=== PATIENT | male | born 1935 | race Caucasian/White ===

== ENCOUNTER 2025-05-14 04:01 | Inpatient (IN) | payer OTHER ==
[2025-05-14] MEDS: NALOXONE HCL (KLOXXADO) 8 MG SPRAY NS ONE ×2 (04:15→04:58)
[2025-05-14] MEDS ORDERED: NALOXONE (NARCAN) HCL 4 MG/0.1 ML SPRAY NS ONE ×2 (04:15→04:39)
[2025-05-14] MEDS ORDERED: DEXTROSE 50%-WATER 25 GM/50 ML DISP.SYRIN ONE ×2 (04:40→04:41)
[2025-05-14] MEDS ORDERED: DEXTROSE 50%-WATER - 25 GM/50 ML VIAL ONE (04:41)
[2025-05-14] MEDS ORDERED: NALOXONE HCL 0.4 MG/ML VIAL ONE ×2 (04:44→05:14)
[2025-05-14] MEDS: NALOXONE HCL 0.4 MG/ML VIAL IVPUSH ONE ×2 (04:53→05:18)
[2025-05-14] MEDS: DEXTROSE 50%-WATER - 25 GM/50 ML VIAL IVPUSH ONE (05:03)
[2025-05-14 06:28] LABS: MCHC 31.0 g/dl (32.3-36.5); MEAN CELL VOLUME 97.6 fl (79.0-92.2); MEAN PLT VOLUME 9.3 fl (9.4-12.4); RDW 15.0 % (12.6-16.6)
[2025-05-14 06:34] LABS: INR 1.78 (0.83-1.09); PROTHROMBIN TIME (PATIENT) 19.6 SEC (9.7-13.0)
[2025-05-14 06:37] LABS: ACTIVATED PTT 33.0 SECONDS (25.2-36.5)
[2025-05-14 06:54] LABS: GLUCOSE,RANDOM 196 mg/dL (74-106); TOT PROT 2.9 g/dl (6.4-8.2)
[2025-05-14 06:55] LABS: CO2 16 mmol/L (21-32)
[2025-05-14 06:57] LABS: ALK PHOS 29 U/L (40-150)
[2025-05-14 07:00] LABS: CREATININE 0.46 mg/dL (0.55-1.3); SGOT/AST 12 U/L (5-34)
[2025-05-14 07:05] LABS: SGPT/ALT < 6 U/L (0-55)
[2025-05-14 07:26] LABS: BG HCT 43.0 % (35.4-49); VENOUS BASE EXCESS -1.7 mmol/L (-2-2); VENOUS O2 SATURATION 97.5 % (70-80); VENOUS PCO2 49.3 mmHg (38-52); VENOUS PH 7.321 (7.310-7.410)
[2025-05-14] MEDS: KCL 10 MEQ IVPB 10 MEQ/100 ML INFUS.BAG IVPB SCH (07:38)
[2025-05-14] MEDS: SODIUM CHLORIDE 0.9% 500 ML INFUS.BAG IV ONE (07:38)
[2025-05-14] MEDS ORDERED: CALCIUM GLUC IN NACL, ISO-OSM 1 GM/50 ML BAG IVPB ONE (08:33)
[2025-05-14] MEDS ORDERED: KCL 10 MEQ IVPB 10 MEQ/100 ML INFUS.BAG IVPB ONE ×2 (08:34→09:46)
[2025-05-14] MEDS: CALCIUM GLUC IN NACL, ISO-OSM 1 GM/50 ML BAG IVPB ONE (09:01)
[2025-05-14] MEDS ORDERED: MAGNESIUM SULFATE IN WATER 2 GM/50 ML IVPB IVPB ONE (09:54)
[2025-05-14] MEDS: MAGNESIUM SULFATE IN WATER 2 GM/50 ML IVPB IVPB ONE (09:58)
[2025-05-14] MEDS ORDERED: ENOXAPARIN NA (PORCINE) 40 MG/0.4 ML DISP.SYRIN SQ SCH (10:00)
[2025-05-14 10:11] LABS: COCAINE, UR NEGATIVE (NEGATIVE)
[2025-05-14] MEDS ORDERED: CEFTRIAXONE 1 GM/50 ML BAG ONE (10:11)
[2025-05-14 10:12] LABS: METHADONE, UR NEGATIVE (NEGATIVE); PHENCYCLIDINE,URINE NEGATIVE (NEGATIVE); URINE BARBITURATES NEGATIVE (NEGATIVE); URINE BENZODIAZEPINES NEGATIVE (NEGATIVE)
[2025-05-14 10:16] LABS: OPIATES, URI NEGATIVE (NEGATIVE); URINE AMPHETAMINES NEGATIVE (NEGATIVE)
[2025-05-14 10:20] LABS: EPI CELLS 12 /uL (0-25.1); HYALINE CASTS 0 /uL (0-3.1); URINE APPEARANCE CLEAR; URINE BACTERIA 4 /uL (0-1359); URINE BILIRUBIN NEGATIVE (NEGATIVE); URINE COLOR DK YELLOW; URINE GLUCOSE (UA) 3+ (NEGATIVE); URINE KETONE 1+ (NEGATIVE); URINE LEUK ESTERASE NEGATIVE (NEGATIVE); URINE NITRITE NEGATIVE (NEGATIVE); URINE PROTEIN TRACE (NEGATIVE); URINE RBC 1331 /uL (0-23.9); URINE UROBILINOGEN 4.0 E.U/dl mg/dL (0.2-1.0); URINE WBC 16 /uL (0-25.8)
[2025-05-14 11:21] VITALS: BMI 32.1
[2025-05-14] MEDS: LEVOTHYROXINE NA 25 MCG TABLET (FP) PO SCH (11:29)
[2025-05-14] MEDS: APIXABAN 5 MG TABLET PO SCH (11:29)
[2025-05-14] MEDS: TAMSULOSIN HCL 0.4 MG CAP PO SCH (11:29)
[2025-05-14] MEDS: DIVALPROEX SODIUM 500 MG TABLET E.C. PO SCH (11:29)
[2025-05-14] MEDS: LOSARTAN POTASSIUM 50 MG TABLET PO SCH (11:29)
[2025-05-14] MEDS: FOLIC ACID 1 MG TABLET (FP) PO SCH (11:30)
[2025-05-14] MEDS: EMPAGLIFLOZIN (JARDIANCE) 10 MG TABLET PO SCH (11:32)
[2025-05-14 11:36] LABS: IRON SERUM 31 ug/dL (50-175)
[2025-05-14] MEDS: amLODIPine BESYLATE 2.5 MG TABLET (FP) PO SCH (11:42)
[2025-05-14 16:09] LABS: GLUCOSE,RANDOM 91.0 mg/dL (74-106)
[2025-05-14 16:10] LABS: TOT PROT 6.1 g/dl (6.4-8.2)
[2025-05-14 16:11] LABS: CO2 25.0 mmol/L (21-32)
[2025-05-14 16:12] LABS: ALK PHOS 66.0 U/L (40-150)
[2025-05-14 16:14] LABS: LDL CHOLESTEROL (ONLY SJRH) 89.0 mg/dL (5-100)
[2025-05-14 16:15] LABS: CREATININE 0.67 mg/dL (0.55-1.3); SGOT/AST 26.0 U/L (5-34); SGPT/ALT 13.0 U/L (0-55)
[2025-05-14 17:34] LABS: LDL CHOLESTEROL (ONLY SJRH) 86.0 mg/dL (5-100)
[2025-05-14 17:41] LABS: N-TERMINAL BNP 278.7 pg/mL (0-299.9)
[2025-05-14] MEDS: ATORVASTATIN CA 10 MG TABLET (FP) PO SCH (21:03)
[2025-05-14] MEDS ORDERED: POTASSIUM CHLORIDE ORAL LIQUID 20 MEQ/15 ML PO SCH (22:00)
[2025-05-15] MEDS: AZITHROMYCIN IVPB 500 MG in DEXTROSE 5%-WATER - 250 ML IVPB ONE (08:04)
[2025-05-15] MEDS: METOPROLOL TARTRATE 25 MG TABLET (FP) PO SCH (08:04)
[2025-05-15 08:54] LABS: BASOPHILS # 0.02 x10^3/uL (0.01-0.08); EOSINOPHIL % 4.0 % (0.8-7.0); MEAN PLT VOLUME 9.3 fl (9.4-12.4); RDW 14.6 % (12.6-16.6)
[2025-05-15 08:56] LABS: ABSOLUTE IMMATURE GRANULOCYTES 0.03 x10^3/uL (0.0-0.031); EOSINOPHILS # 0.21 x10^3/uL (0.04-0.54); IMMATURE PLATELET FRACTION # 2.00 x10^3/uL; MCHC 32.0 g/dl (32.3-36.5); MEAN CELL VOLUME 94.0 fl (79.0-92.2); MONOCYTE # 0.76 x10^3/uL (0.30-0.82); MONOCYTE % 14.5 % (5.3-12.2)
[2025-05-15 09:23] LABS: GLUCOSE,RANDOM 71.0 mg/dL (74-106)
[2025-05-15 09:24] LABS: TOT PROT 5.6 g/dl (6.4-8.2)
[2025-05-15 09:25] LABS: CO2 26.0 mmol/L (21-32)
[2025-05-15 09:26] LABS: ALK PHOS 61.0 U/L (40-150)
[2025-05-15 09:29] LABS: CREATININE 0.65 mg/dL (0.55-1.3); SGOT/AST 23.0 U/L (5-34); SGPT/ALT 10.0 U/L (0-55)
[2025-05-15] MEDS: FAMOTIDINE 20 MG TABLET PO SCH (09:44)
[2025-05-15] MEDS: SENNOSIDES 8.6MG TABLET (FP) PO SCH (09:44)
[2025-05-15] MEDS: POLYETHYLENE GLYCOL (HEALTHYLAX) 3350 17 GM PACKET PO SCH (09:44)
[2025-05-16 01:34] LABS: COCAINE, UR NEGATIVE (NEGATIVE)
[2025-05-16 01:35] LABS: PHENCYCLIDINE,URINE NEGATIVE (NEGATIVE); URINE AMPHETAMINES NEGATIVE (NEGATIVE)
[2025-05-16 01:36] LABS: METHADONE, UR NEGATIVE (NEGATIVE); URINE BARBITURATES NEGATIVE (NEGATIVE); URINE BENZODIAZEPINES NEGATIVE (NEGATIVE)
[2025-05-16 01:40] LABS: OPIATES, URI NEGATIVE (NEGATIVE)
[2025-05-16 14:01] LABS: ABSOLUTE IMMATURE GRANULOCYTES 0.04 x10^3/uL (0.0-0.031); BASOPHILS # 0.05 x10^3/uL (0.01-0.08); EOSINOPHIL % 1.8 % (0.8-7.0); EOSINOPHILS # 0.10 x10^3/uL (0.04-0.54); MCHC 32.0 g/dl (32.3-36.5); MEAN CELL VOLUME 93.8 fl (79.0-92.2); MEAN PLT VOLUME 9.1 fl (9.4-12.4); MONOCYTE # 0.73 x10^3/uL (0.30-0.82); MONOCYTE % 12.9 % (5.3-12.2); RDW 14.9 % (12.6-16.6)
[2025-05-16 14:18] LABS: GLUCOSE,RANDOM 135.0 mg/dL (74-106); TOT PROT 6.1 g/dl (6.4-8.2)
[2025-05-16 14:19] LABS: CO2 25.0 mmol/L (21-32)
[2025-05-16 14:21] LABS: ALK PHOS 75.0 U/L (40-150)
[2025-05-16 14:23] LABS: SGOT/AST 23.0 U/L (5-34); SGPT/ALT 10.0 U/L (0-55)
[2025-05-16 14:24] LABS: CREATININE 0.8 mg/dL (0.55-1.3)
[2025-05-16] MEDS: NAPH,MB-DB/K PH,MBDB POWDER PACKET PO ONE (21:15)
[2025-05-16 23:08] LABS: PARATHYROID HORM INTACT 63 pg/mL (15-65)
[2025-05-18] MEDS: FLUTICASONE PROPION IH SCH (10:35)
[2025-05-18] MEDS: SALMETEROL IH SCH (10:35)
[2025-05-18] MEDS: [UNRECOGNIZED DRUG - OTHER] IH SCH (10:35)
[2025-05-18] MEDS: BUDESONIDE/FORMETEROL FUMARATE 80/4.5 mcg INHALER IH SCH (11:21)
[2025-05-19] MEDS: LEVOTHYROXINE NA 25 MCG TABLET (FP) PO SCH (06:05)
[2025-05-19] MEDS: TAMSULOSIN HCL 0.4 MG CAP PO SCH (09:43)
[2025-05-21 13:00] VITALS: BP 133/81; PULSE 58; RESP 15; TEMP 97.6
== END 2025-05-21 11:23 | disposition home or self-care (01) | DRG 917 ==
LOC: JER 04:01 → JERBED 09:07 → J4S 10:32
PROVIDERS: ATTEND Internal Medicine
DX: T43.591A Poisoning by other antipsychotics and neuroleptics, accidental (unintentional), initial encounter (principal); G92.8 Other toxic encephalopathy; L03.115 Cellulitis of right lower limb; L03.116 Cellulitis of left lower limb; E87.20 Acidosis, unspecified; D61.818 Other pancytopenia; Y92.9 Unspecified place or not applicable; E78.5 Hyperlipidemia, unspecified; J44.9 Chronic obstructive pulmonary disease, unspecified; F39 Unspecified mood [affective] disorder; N40.0 Benign prostatic hyperplasia without lower urinary tract symptoms; F03.90 Unspecified dementia, unspecified severity, without behavioral disturbance, psychotic disturbance, mood disturbance, and anxiety; I48.91 Unspecified atrial fibrillation; E87.6 Hypokalemia; E83.42 Hypomagnesemia; E83.51 Hypocalcemia; I11.0 Hypertensive heart disease with heart failure; I50.9 Heart failure, unspecified; E03.9 Hypothyroidism, unspecified
CPT/HCPCS: 36415; 70450-TC; 71045-TC-FY; 80053; 80061; 80307; 81003; 82310; 82330; 82607; 82728; 82746; 82803; 82962; 83036; 83540; 83550; 83735; 83880; 83970; 84100; 84439; 84443; 84484; 85025; 85610; 85730; 86850; 86900; 86901; 87086; 87637-QW; 87899; 93005; 93010; 93306-TC; 97116-GP; 97161-GP; 99285-25